=== PATIENT | male | born 1995 | race Caucasian/White ===

== ENCOUNTER 2020-08-20 20:31 | Emergency (ER) | payer OTHER, SELFPAY ==
[2020-08-20 20:36] VITALS: BP 167/92
[2020-08-20 20:37] VITALS: PULSE 95; O2SAT 97
[2020-08-20 20:39] VITALS: BP 167/92; PULSE 100; RESP 18; TEMP 37.1; O2SAT 98; BMI 33.0
--- NOTE | 2020-08-20 20:44 | ED_ITS ---
HPI - Skin/Abscess/Foreign Bdy General Chief complaint: Skin/Abscess/Foreign Body Stated complaint: drain a cyst butt Time Seen by Provider: 08/20/20 20:35 Source: patient Mode of arrival: Ambulatory Limitations: no limitations History of Present Illness HPI narrative: Patient is a 25-year-old male who is seen had a outside facility earlier today and was diagnosed with a pilonidal cyst. Was placed on Keflex and Flagyl. There is no incision and drainage performed because it was already draining at the time of that visit. He has taken 1 dose of these antibiotics. He comes the emergency department today because he states that is no longer draining and he is having quite a bit of discomfort. He has never had any symptoms like this in the past. Does not have a primary provider. Related Data Allergies Allergy/AdvReac Type Severity Reaction Status Date / Time No Known Drug Allergies Allergy Verified 08/20/20 20:47 Review of Systems Constitutional Constitutional: Denies fever(s) Musculoskeletal Musculoskeletal: Reports back pain (Lower back) Integumentary/Breasts Comments: Swelling right above the buttocks Hematologic/Lymphatic Hematologic/Lymphatic: Denies easy bleeding and Denies easy bruising Allergic/Immunologic Allergic/Immunologic: Denies urticaria Patient History Medical History Healthy adult Social History Smoking Status: Never smoker Smoking Status: Never smoker alcohol intake frequency: holidays/special occasions only Substance Use Type: does not use Exam Initial Vital Signs Initial Vital Signs: Vital Signs Blood Pressure 167/92 H 08/20/20 20:36 Const Limitations: mental status not altered [facility] Head: normal to inspection and normocephalic Resp Effort & Inspection: normal respiratory effort Skin Other: Patient with a area of induration just superior to the intergluteal cleft. Is more prominent on the left that it is on the right. There are 2 very small punctate tracks located midline. There is no drainage from these areas. There is no surrounding erythema. Neuro General: patient alert and patient awake Cognition: normal cognition Speech: speech normal Extrem General: capillary refill normal Psych Appearance: grossly normal and well kempt Procedures Abscess I/D I&D #1: Site: other (Pilonidal) Local Anesthetic: lidocaine 1% and with bicarb Amount of anesthesia used (mL): 8 Technique: incised with #11 blade Irrigation: No Packing used?: iodoform Course Orders Ordered: Discontinued Medications Hydrocodone Bitart/Acetaminophen (Hydrocodone/Acet 5/325 Prepack) 1 bottle MISC SEEINSTR ONE Stop: 08/20/20 21:39 Last Admin: 08/20/20 21:53 Dose: 1 bottle Documented by: MICK Lidocaine/Sodium Bicarbonate (Lido 1%/Sod Bicarb 8.4% (10ml) 10 Ml Syringe) 10 ml INJ NOW ONE Stop: 08/20/20 20:46 Last Admin: 08/20/20 20:51 Dose: 10 ml Documented by: MICK Vital Signs Vital signs: Vital Signs - 8 hr 08/20/20 20:36 08/20/20 20:37 08/20/20 20:39 Temperature 98.8 F Pulse Rate 95 H 100 H Respiratory Rate 18 Blood Pressure 167/92 H 167/92 H Pulse Oximetry 97 98 08/20/20 21:52 Temperature Pulse Rate 85 Respiratory Rate 14 Blood Pressure 149/84 H Pulse Oximetry 97 MDM - Skin/Abscess/Foreign Bdy MDM Narrative Medical decision making narrative: Patient's physical exam is consistent with a pilonidal cyst. He is quite a bit of induration around the area without much erythema. There are 2 small punctate areas directly midline. I made an initial 1 cm incision over the area of greatest induration just left of midline and with significant probing there was no return of any purulent material. I then used a ultrasound and found that there was a area of abscess directly midline. I attempted to access the area from the incision that was already made but was unable to. I then made a very small incision extending the most superior punctate wound and was able to drain purulent material. Small amount of packing was placed given the fact that it was midline and I was concerned that when he would sit the skin would cause the wound to close. He is going to continue taking his antibiotics. He was given phone number for follow-up with General surgery. He expressed understanding and agreement. Discharge Plan Departure Patient Disposition: Home Clinical Impression: Infected pilonidal cyst Instructions: Pilonidal Cyst, DI for Pilonidal Cyst Drainage or Removal Activity Restrictions/Additional Instructions: The packing that was placed does need to be removed in approximately 48 hours. Until then change the bandages over top of it as needed. I would not be surprised if you get some drainage from the area. We actually want this to happen so that your symptoms improved. Continue with the antibiotics as directed. I recommend that you contact the [facility] here at the [facility] with [phone]. You can contact them tomorrow to schedule follow-up appointment as this issue could potentially require surgery for complete healing. Return to the emergency department for any new or worsening symptoms. You can also contact the health resource is coordinator here at the [facility] at [phone]. This person could help establish a primary provider in the area. Stand Alone Forms: Work Release Note
[2020-08-20] MEDS: LIDO 1%/SOD BICARB 8.4% (10ML) 10 ML SYRINGE INJ (20:51)
[2020-08-20 21:52] VITALS: BP 149/84; PULSE 85; RESP 14; O2SAT 97
[2020-08-20] MEDS: HYDROCODONE/ACET 5/325 PREPACK 1 BOTTLE MISC (21:53)
== END 2020-08-20 21:58 | disposition home or self-care (01) ==
PROVIDERS: Emergency Provider Emergency Medicine
DX: L05.91 Pilonidal cyst without abscess (principal); M54.5 Low back pain
CPT/HCPCS: 10060; 99281; 99283